=== PATIENT | male | born 1950 ===

== ENCOUNTER 2020-10-29 13:11 | Emergency (ER) | payer MEDICARE ==
--- NOTE | 2020-10-29 13:42 | Emergency Department Report ---
ED Fall HPI - General Chief Complaint: Fall Stated Complaint: BODY PAIN/FALL Time Seen by Provider: 10/29/20 13:37 Source: patient Mode of arrival: Wheelchair - History of Present Illness Initial Comments: 70-year-old male who reports a past medical history of BPH, seizure disorders and a "mild stroke" in 2007 presents to the ER with complaints of low back pain and left elbow pain after a fall today. He states that he was at a [facility]. He states that while sitting on one of the high stools, and the stool broke, and he fell. He states that he did land on his buttocks and also on his left elbow. He states that he did hit his head "a little". He denies any LOC. He is not on any anticoagulants and antiplatelets. He complains mainly of his lower back and his elbow hurting. He reports no other symptoms at this time. MD Complaint: fall, other (Back pain and left elbow pain) -: Sudden (Just prior to arrival) - Related Data Previous Rx's Medication Instructions Recorded Last Taken Type Ketorolac [Toradol] 10 mg PO Q6H PRN #20 tablet 10/29/20 Unknown Rx methOCARBAMOL [Robaxin TAB] 500 mg PO Q6H PRN #30 tablet 10/29/20 Unknown Rx Allergies Allergy/AdvReac Type Severity Reaction Status Date / Time No Known Allergies Allergy Unverified 10/29/20 13:15 ED Review of Systems ROS: Stated complaint: BODY PAIN/FALL Other details as noted in HPI Comment: All other systems reviewed and negative Constitutional: denies: chills, fever Eyes: denies: eye pain, eye discharge, vision change ENT: denies: ear pain, throat pain, dental pain, hearing loss, epistaxis, congestion Respiratory: denies: cough, shortness of breath, SOB with exertion, SOB at rest, wheezing Cardiovascular: denies: chest pain, palpitations, dyspnea on exertion, edema, syncope, paroxysmal nocturnal dyspnea Gastrointestinal: denies: abdominal pain, nausea, diarrhea, constipation, hematemesis, hematochezia Genitourinary: denies: urgency, dysuria, frequency, hematuria, discharge, testicular pain, testicular mass Musculoskeletal: back pain, arthralgia Skin: denies: rash, lesions, change in color, change in hair/nails, pruritus Neurological: denies: headache, weakness, numbness, paresthesias, confusion, abnormal gait, vertigo Psychiatric: denies: anxiety, depression, auditory hallucinations, visual hallucinations, homicidal thoughts, suicidal thoughts Hematological/Lymphatic: denies: easy bleeding, easy bruising ED Past Medical Hx - Past Medical History Previous Medical History?: Yes Additional medical history: enlarged prostate - Medications Home Medications: Home Medications Medication Instructions Recorded Confirmed Last Taken Type Ketorolac [Toradol] 10 mg PO Q6H PRN #20 tablet 10/29/20 Unknown Rx methOCARBAMOL [Robaxin TAB] 500 mg PO Q6H PRN #30 tablet 10/29/20 Unknown Rx ED Physical Exam - General Limitations: No Limitations General appearance: alert, in no apparent distress - Head Head exam: Present: atraumatic, normocephalic, normal inspection - Eye Eye exam: Present: normal appearance, PERRL, EOMI Pupils: Present: normal accommodation - ENT ENT exam: Present: normal exam - Neck Neck exam: Present: normal inspection, full ROM - Respiratory Respiratory exam: Present: normal lung sounds bilaterally. Absent: respiratory distress, wheezes, rales, rhonchi - Cardiovascular Cardiovascular Exam: Present: regular rate, normal rhythm, normal heart sounds - GI/Abdominal GI/Abdominal exam: Present: soft. Absent: distended, tenderness, guarding, rebound - Back Exam Back exam: Present: normal inspection, full ROM (He does have full range of motion of his spine but there is pain on range of motion), paraspinal tenderness (TTP left lower paraspinal muscle), vertebral tenderness (Lower lumbar spine) - Neurological Exam Neurological exam: Present: alert, oriented X3, CN II-XII intact, normal gait - Psychiatric Psychiatric exam: Present: normal affect, normal mood - Skin Skin exam: Present: intact ED Course Vital Signs 10/29/20 13:11 Temperature 98 F Pulse Rate 88 Respiratory 16 Rate Blood Pressure 152/88 [Right] O2 Sat by Pulse 99 Oximetry ED Medical Decision Making - Radiology Data Radiology results: report reviewed Patient: KASIA MENSAH MR#: [id number] : 1950 Acct:[id number] Age/Sex: 70 / M ADM Date: 10/29/20 Loc: ED Attending Dr: Ordering Physician: ALEXANDRA EDGAR Date of Service: 10/29/20 Procedure(s): XR elbow 3+V LT Accession Number(s): [id number] cc: ALEXANDRA EDGAR Fluoro Time In Minutes: LEFT ELBOW 3 VIEWS INDICATION: fall/injury. COMPARISON: None. IMPRESSION: No acute osseous or soft tissue abnormality. Mild osteoarthritic changes are identified. LUMBOSACRAL SPINE 3 VIEWS INDICATION: fall/injury. COMPARISON: None. IMPRESSION: Normal alignment. 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 L5-S1 is the most affected level. No acute osseous or soft tissue abnormality. Signer Name: Kwabena Wall Jr, MD Signed: 10/29/2020 2:21 PM Workstation Name: [id number] Transcribed By: TTR Dictated By: KWABENA WALL JR, MD Electronically Authenticated By: KWABENA WALL JR, MD Signed Date/Time: 10/29/201420 DD/ 19 TD/TT: Patient: KASIA MENSAH MR#: [id number] : 1950 Acct:[id number] Age/Sex: 70 / M ADM Date: 10/29/20 Loc: ED Attending Dr: Ordering Physician: ALEXANDRA EDGAR Date of Service: 10/29/20 Procedure(s): XR elbow 3+V LT Accession Number(s): [id number] cc: ALEXANDRA EDGAR Fluoro Time In Minutes: LEFT ELBOW 3 VIEWS INDICATION: fall/injury. COMPARISON: None. IMPRESSION: No acute osseous or soft tissue abnormality. Mild osteoarthritic changes are identified. LUMBOSACRAL SPINE 3 VIEWS INDICATION: fall/injury. COMPARISON: None. IMPRESSION: Normal alignment. 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 L5-S1 is the most affected level. No acute osseous or soft tissue abnormality. Signer Name: Kwabena Wall Jr, MD Signed: 10/29/2020 2:21 PM Workstation Name: [id number] Transcribed By: TTR Dictated By: KWABENA WALL JR, MD Electronically Authenticated By: KWABENA WALL JR, MD Signed Date/Time: 10/29/201420 DD/ 1420 TD/TT: - Medical Decision Making X-ray of the left elbow and the lumbar spine shows nothing acute. Patient is currently awake alert oriented x3 with a GCS of 15, with no focal neurological deficits on exam and a normal gait in the ER. He is not toxic or ill-appearing and not in any significant pain distress. His vital signs are stable. Suspect contusion at this time. Discussed suspected diagnosis and treatment plan with patient. Patient was stable at time of discharge. Critical care attestation.: If time is entered above; I have spent that time in minutes in the direct care of this critically ill patient, excluding procedure time. ED Disposition Clinical Impression: Lumbar contusion, Elbow contusion Disposition: - TO HOME OR SELFCARE Is pt being admited?: No Does the pt Need Aspirin: No Condition: Stable Instructions: Contusion, Ueil-gn-Issb Additional Instructions: I recommend that you take the Toradol and the muscle relaxer as prescribed. Follow-up closely with your primary care doctor. Return to the ER if your symptoms changes or worsens in any way. Prescriptions: methOCARBAMOL [Robaxin TAB] 500 mg PO Q6H PRN #30 tablet PRN Reason: pain Ketorolac [Toradol] 10 mg PO Q6H PRN #20 tablet PRN Reason: Pain Referrals: [facility] [Provider Group] - 3-5 Days Time of Disposition: 14:45
--- NOTE | 2020-10-29 14:26 | XRay Report ---
LEFT ELBOW 3 VIEWS INDICATION: fall/injury. COMPARISON: None. IMPRESSION: No acute osseous or soft tissue abnormality. Mild osteoarthritic changes are identifi ed. LUMBOSACRAL SPINE 3 VIEWS INDICATION: fall/injury. COMPARISON: None. IMPRESSION: Normal alignment. Moderate multilevel discogenic DJD and facet arthropathy are identifi ed. L5-S1 is the most affected level. No acute osseous or soft tissue abnormality. Signer Name: Kwabena Kelley Jr, MD Signed: 10/29/2020 2:21 PM Workstation Name: [id number]
[2020-10-29] MEDS ORDERED: ACETAMINOPHEN 325 MG TAB PO ONE (14:45)
[2020-10-29 16:46] VITALS: BP 152/88
== END 2020-10-29 17:00 | disposition home or self-care (01) ==
LOC: ED 13:11
DX: S30.0XXA Contusion of lower back and pelvis, initial encounter (principal); S50.02XA Contusion of left elbow, initial encounter; W07.XXXA Fall from chair, initial encounter; Y93.89 Activity, other specified; Y92.89 Other specified places as the place of occurrence of the external cause; Y99.8 Other external cause status
CPT/HCPCS: 72100; 99283